=== PATIENT | male | born 1935 | race Caucasian/White ===

== ENCOUNTER → 2018-08-16 | Day surgery (SDC) | payer MEDICARE ==
[2018-08-13 13:55] LABS: BASOPHILS # (AUTO) 0.1 (0.0-0.1); EOSINOPHILS # (AUTO) 0.1 (0.0-0.4); EOSINOPHILS % 1.9 % (0.0-6.0); HEMATOCRIT 42.3 % (38.2-49.6); HEMOGLOBIN 13.8 g/dL (14.0-18.0); LYMPHOCYTES # (AUTO) 1.5 (1.0-3.2); LYMPHOCYTES % 21.9 % (18.0-39.1); MEAN CORPUSCULAR HGB CONC 32.6 g/dL (31-35); MONOCYTES # (AUTO) 0.6 (0.2-0.8); MONOCYTES % 8.4 % (4.4-11.3); NEUTROPHILS # (AUTO) 4.6 (2.1-6.9); NEUTROPHILS % 66.5 % (38.7-80.0); PLATELET COUNT 179 x10e3/uL (140-360); RED BLOOD COUNT 4.92 x10e6/uL (4.3-5.7); RED CELL DISTRIBUTION WIDTH 14.6 % (11.7-14.4)
[2018-08-13 14:15] LABS: ANION GAP 10.5 mmol/L (8-16); CALCIUM 8.8 mg/dL (8.4-10.2); CREATININE, SERUM 1.18 mg/dL (0.72-1.25); POTASSIUM 3.5 mmol/L (3.5-5.1)
--- NOTE | 2018-08-13 14:25 | Diagnostic Imaging Report ---
EXAMINATION: PA and lateral views of the chest. COMPARISON: None CLINICAL HISTORY: Preadmission, surgery for bladder calculus DISCUSSION: Lines/tubes: Dual-lead pacemaker. Lungs: The lungs are well inflated and clear. No pneumonia or pulmonary edema. Pleura: No pleural effusion or pneumothorax. Heart and mediastinum: The cardiomediastinal silhouette is normal. Bones and soft tissues: No acute bony abnormalities. IMPRESSION: No acute cardiopulmonary abnormalities. Signed by: Dr. Nacho Rojo M.D. on 08/13/2018 2:21 PM
[~2018-08-16] MED LIST: AMLODIPINE BESYL5 MG PO; ANTIBIOTIC28.4 GM PO; ASPIR 8181 MG PEG; ELIQUIS PO; FENTANYL CITRATE/PF 100MCG/2 ML INJ ONE; FLOMAX0.4 MG PO; FLUTICASONE; IBUPROFEN400 MG PO; IOPAMIDOL 610MG/1ML 300 MG/ML VIAL IV ONE; LEVOFLOXACIN 500MG/D5W 100ML 100 ML IV ONE; LIDOCAINE HCL 2% LOCAL INJ 5 ML SDV VIAL INJ ONE; MELOXICAM7.5 MG PO; MIDAZOLAM HCL 2 MG/2 ML VIAL ONE; OMEPRAZOLE40 MG PO; ONDANSETRON HCL INJ 2MG/ML 2ML 2 MG/ML VIAL ONE; PROPOFOL IV EMULSION 10 MG/ML 20 ML VIAL ONE; SIMVASTATIN20 MG PO; ULTRAM 50MG50 MG PO; antibiotic PO
--- OUTSIDE RECORDS SUMMARY | 2018-08-16 09:15 | XMS REPORT ---
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 Allergies, Adverse Reactions, Alerts Allergy Name Allergy Type Status Severity Reaction(s) Onset Date Inactive Date Treating Clinician Comments Penicillins DA Active SV 2018-08-11 00:00:00 Medications This patient has no known medications. Results Test Description Test Time Test Comments Text Results Atomic Results Result Comments CHEST 2 VIEWS 2018-08-13 14:19:00 [place] [address] Patient Name: CLARISSE LEE MR #: [id number] : 1935 Age/Sex: 83/M Req #: [id number] Adm Physician: Ordered by: PRECIOUS FONTENOT MD Report #: [id number] Location: OR Room/Bed: Procedure: [id number] DX/CHEST 2 VIEWS Exam Date: Exam Time: REPORT STATUS: Signed EXAMINATION: PA and lateral views of the chest. COMPARISON: None CLINICAL HISTORY: Preadmission, surgery for bladder calculus DISCUSSION: Lines/tubes: Dual-lead pacemaker. Lungs: The lungs are well inflated and clear. No pneumonia or pulmonary edema. Pleura: No pleural effusion or pneumothorax. Heart and mediastinum: The cardiomediastinal silhouette is normal. Bones and soft tissues: No acute bony abnormalities. IMPRESSION: No acute cardiopulmonary abnormalities. Signed by: Dr. Jesus Gill M.D. on 08/13/2018 2:21 PM Dictated By: JESUS GILL MD 1421 Transcribed By: DELMI on 08/13/18 1421 COPY TO: PRECIOUS FONTENOT MD URINALYSIS COMPLETE 2018-08-11 21:09:00 UA COLOR (test code=COLU) YELLOW YELLOW UA APPEARANCE (test code=APPU) SLIGHT HAZY CLEAR UA GLUCOSE DIPSTICK (test code=DGLUU) TRACE mg/dL NEGATIVE UA BILIRUBIN DIPSTICK (test code=BILU) NEGATIVE NEGATIVE UA KETONE DIPSTICK (test code=KETU) NEGATIVE mg/dL NEGATIVE UA SPECIFIC GRAVITY (test code=SGU) 1.010 1.001-1.035 UA BLOOD DIPSTICK (test code=ANDREW) NEGATIVE NEGATIVE UA PH DIPSTICK (test code=JOESPH) 7.0 5.0-8.0 UA PROTEIN DIPSTICK (test code=PROU) TRACE (15) mg/dL Neg-15 UA UROBILINIOGEN DIPSTICK (test code=URO) 0.2 mg/dL 0.0-0.2 UA NITRITE DIPSTICK (test code=CARLOS) NEGATIVE NEGATIVE UA LEUKOCYTE ESTERASE DIPSTICK (test code=LEUU) TRACE uL NEGATIVE UA MICROSCOPIC NEEDED? (test code=UAMICRO) YES UA WBC (test code=WBCU) 21-50 per HPF 0-5 UA RBC (test code=RBCU) 5-10 per HPF 0-5 UA EPITHELIAL CELLS (test code=EPIU) Few (2-5/hpf) per HPF Few UA BACTERIA (test code=BACU) FEW per HPF NONE Urine Source? Clean CatchURINALYSIS [id number] 21:04:00* Test Item Value Reference Range Comments UA COLOR (test code=COLU) YELLOW UA APPEARANCE (test code=APPU) CLEAR UA GLUCOSE DIPSTICK (test code=DGLUU) TRACE mg/dL NEGATIVE UA BILIRUBIN DIPSTICK (test code=BILU) NEGATIVE NEGATIVE UA KETONE DIPSTICK (test code=KETU) NEGATIVE mg/dL NEGATIVE UA SPECIFIC GRAVITY (test code=SGU) 1.010 1.001-1.035 UA BLOOD DIPSTICK (test code=ANDREW) NEGATIVE NEGATIVE UA PH DIPSTICK (test code=JOESPH) 7.0 5.0-8.0 UA PROTEIN DIPSTICK (test code=PROU) TRACE (15) mg/dL Neg-15 UA UROBILINIOGEN DIPSTICK (test code=URO) 0.2 mg/dL 0.0-0.2 UA NITRITE DIPSTICK (test code=CARLOS) NEGATIVE NEGATIVE UA LEUKOCYTE ESTERASE DIPSTICK (test code=LEUU) TRACE uL NEGATIVE UA MICROSCOPIC NEEDED? (test code=UAMICRO) UA WBC (test code=WBCU) per HPF 0-5 UA RBC (test code=RBCU) per HPF 0-5 UA EPITHELIAL CELLS (test code=EPIU) per HPF Few UA BACTERIA (test code=BACU) per HPF NONE Urine Source? Clean Catch- CT ABD PELVIS W/O [id number] 20:47:00 Name: PAZ LEE [facility] FSED : 1935 Age/S: 83 / M [address] Unit #: [id number] Loc: [address] Phys: Kit Jc MD [place], [place] [address] Acct: [id number] Di s Date: Status: REG ER PHONE #: Exam Date: 08/11/20182026 FAX #: Reason: AAA??? vs kidney stones. h/o r and l side stone EXAMS: CPT CODE: [id number] CT ABD PELVIS W/O CONT [id number] REASON FOR EXAM: AAA??? Vs kidney stones. H/o r and l side stones EXAM ORDER DATE: 08/11/2018 7:43 PM Ordering M.D.: Stas Jc MD SC OCEDURE: - CT ABD PELVIS W/O CONT noncontrast axial CT images were acqui red through the abdomen/pelvis at 5 mm intervals. Sagittal and coronal re formatted images were generated. Automated exposure control was utilized for this reduction. Phases: None COMPARISON: None FINDINGS: The absence of IV contrast limits sensitivi ty of this exam for the detection of soft tissue pathology V isualized thorax: There is subsegmental atelectasis in the bilateral lower lobes and in the lingula of the left lung. Leads from a pacemaker termina te in the right atrium and right ventricle. Hepatobiliary system: There is a 1.4 cm cyst in hepatic segment 2. Pancreas: Normal Spleen: Calcified granulomas are seen. Adrenal glands: N ormal Genitourinary system: There are multiple stones in both kidn eys. The largest stone is located in the inferior pole of the left kidney and measures 6 mm in size (401/91). No hydronephrosis or hydroureter. No ureterolithiasis. There is a diverticulum arising from the left ante rosuperior lateral wall of the bladder. This diverticulum measures up to 5 .8 x 7.9 x 7.5 cm in size. Calcification within this diverticulum may repr esent a stone. There are additional calcifications within the urinary blad aldo lumen that likely represent additional stones. The prostate glan d is markedly enlarged with an estimated volume of 152 mL. PAG E 1 Signed Report (CONTINUED) Name: PAZ LEE [facility] FSED : 1935 Age/S: 83 / M [address] [facility] Unit #: [id number] Loc: [address] Phys: Stas Jc MD [place], [place] [address] Acct: [id number] Dis Date: Status: REG ER PHONE #: Exam Date: 08/11/20182026 FAX #: Reason: AAA??? vs kidney stones. h/o r and l side stone EXAMS: CPT CODE: [id number] CT ABD PELVIS W/O CONT 03067 <Continued> Gastrointestinal tract and appendix: There is extensive diverticular disease involving the descending and sigmoid colon but no evidence of diverticulitis. Additional diverticuli are present in the transverse colon. The appendix is not clearly visualized. Stomach and small bowel are within normal limits. Abdominal vascular structures: Scattered calcified atherosclerosis in the aorta. Aorta and IVC are normal in caliber. Peritoneum and retroperitoneum: No free fluid or free air or adenopathy is appreciated. Musculoskeletal structures and abdominal wall: There are degenerative changes seen throughout the visualized spine and in the bilateral hips. There is a fat-containing umbilical hernia with a neck that measures 2.0 cm in size. There is mild stranding of fat within this hernia sac. There is also fat-containing inguinal hernia on the left side. Patient is noted to have diastases recti. IMPRESSION: Bilateral nephrolithiasis with the largest stone measuring 6 mm. No evidence of hydronephrosis or perinephric inflammatory changes. Pr ostatomegaly. No obvious prostate mass or nodule is seen however this ca n be better evaluated with a prostate MRI nonemergently. Bladder diverti culum as described above with dependent stones. This diverticula may be secondary to bladder outlet obstruction caused by the enlarged prostate gland. Colonic diverticulosis without evidence of diverticulitis. Umbilical hernia containing fat. There are inflammatory changes in the fat within the hernia sac. at 2046 Reported and signed by: Cyrus cowan MD CC: Stas Jc MD [facility] gist:Jim Mcgowanese CTDI: DLP: Trnscb Date/Time: 08/11/2018 (2046) [email or web address] Orig Print D/T: S: 08/11/2018 (2049) PAGE 2 Signed Report - XR CHEST 1 [id number] 20:29:00 FAX: Stas Matute MD [phone] [place]: [place] St: REG Name: PAZ OVALLE [facility] FSED : [birth year] Age/S: 83/M [address] [facility] [address] Unit #: [id number] Loc: [address] Phys: Stas Jc MD [place], [place] [address] Acct: [id number] Dis Date: Status: REG ER PHONE #: Exam Date: 08/11/20182011 FAX #: Reason: ABDOMINAL PAIN EXAMS: CPT CODE: [id number] XR CHEST 1 V 20448 REASON FOR EXAM: ABDOMINAL PAIN Exam Order Date: 08/11/2018 7:43 PM Ordering M.D .: Stas Jc MD PROCEDURE: - XR CHEST 1 V COMP ARISON: None FINDINGS: There is a left subclavian dual-mattie d pacemaker with the leads terminating in the regions of the right atrium and right ventricle. There is subsegmental atelectasis in the bila teral lung bases. The upper lungs are clear. The cardiomedia stinal silhouette is at the upper limits of normal in size however this ma y be due to patient positioning. Calcified lymph nodes are seen in the aor topulmonary window and left hilar region. Degenerative changes are seen throughout the visualized spine. The visualized upper abdomen is wit hin normal limits. IMPRESSION: Subsegmental atelectasis in the lung bases. Otherwise the lungs are clear. Electronic ally Signed by Cyrus Arreaga MD on 08/11/2018 at 2028 Repo rted and signed by: Cyrus Arreaga MD CC: Stas Jc MD Technologist: Jim Camarillo Trnksrd Date/Time/By: 08/11/2018 (2028) : By: [email or web address] Orig Print D/T: S: 08/11/2018 (2031) PAGE 1 Signed Report PROTHROMBIN [id number] 20:03:00* Test Item Value Reference Range Comments PROTHROMBIN TIME PATIENT (test code=PTP) 9.8 seconds 9.0-13.0 INTERNATIONAL NORMAL RATIO (test code=INR) 1.0 0.8-1.2 The therapeutic range for oral anticoagulant therapy formost indications is an international normalized ratio (INR)of between 2.0 and 3.0. The recommended therapeutic INRrange for various clinical situations is listed below: Clinical Situation INR range Pulmonary e mbolism treatment (2.0-3.0)Venous thrombosis treatmentVenous thrombosis prophylaxis (high risk surgery)Prevention of systemic embolism from: Acute myocardial infarction Valvular heart disease Atrial fibrillation Mechanical prosthetic heart valves (2.5-3.5) IS PATIENT ON ANTICOAGULANTS? NTHROMBOPLASTIN TIME [id number] 20:03:00* Test Item Value Reference Range Comments THROMBOPLASTIN TIME PARTIAL (test code=PTT) 24.7 seconds 25.5-34.3 Therapeutic Range for patients on Heparin Therapy is 2 to2.5 times their baseline PTT level. IS PATIENT ON ANTICOAGULANTS? NBASIC METABOLIC [id number] 19:59:00* Test Item Value Reference Range Comments SODIUM (test code=NA) 142 mmol/L 128-145 POTASSIUM (test code=K) 3.5 mmol/L 3.5-5.1 CHLORIDE (test code=CL) 104.0 mmol/L 98-107 CARBON DIOXIDE (test code=CO2) 28.4 mmol/L 22-29 ANION GAP (test code=GAP) 13 mmol/L 10-20 GLUCOSE (test code=GLU) 135 mg/dL 70-110 BLOOD UREA NITROGEN (test code=BUN) 16 mg/dL 7-22 GLOMERULAR FILTRATION RATE (test code=GFR) 59 mL/min >=60 Estimated GFR by using Modified MDRD formula.Chronic kidney disease is defined as either kidney damageor GFR <60 mL/min/1.73 m2 for >3 months. CREATININE (test code=CREAT) 1.18 mg/dL 0.55-1.3 BUN/CREATININE RATIO (test code=BUN/CREA) 13.6 10-20 CALCIUM (test code=CA) 8.5 mg/dL 8.0-10.5 HEPATIC FUNCTION [id number] 19:59:00* Test Item Value Reference Range Comments TOTAL PROTEIN (test code=PROT) 6.5 gram/dL 6.1-7.8 ALBUMIN (test code=ALB) 3.5 g/dL 3.3-4.4 GLOBULIN (test code=GLOB) 3.0 G/DL 1-10 ALBUMIN/GLOBULIN RATIO (test code=A/G) 1.2 0.75-1.50 BILIRUBIN TOTAL (test code=BILT) 0.50 mg/dL 0.2-1.2 BILIRUBIN DIRECT (test code=BILD) 0.10 mg/dL 0.0-0.30 SGOT/AST (test code=AST) 26 U/L 10-39 SGPT/ALT (test code=ALT) 37 U/L 10-69 ALKALINE PHOSPHATASE TOTAL (test code=ALKP) 66 U/L 50-139 [id number] 19:59:00* Test Item Value Reference Range Comments LIPASE (test code=LIP) 182 Unit/L 144-286 BASIC METABOLIC [id number] 19:55:00* Test Item Value Reference Range Comments SODIUM (test code=NA) 142 mmol/L 128-145 POTASSIUM (test code=K) 3.5 mmol/L 3.5-5.1 CHLORIDE (test code=CL) 104.0 mmol/L 98-107 CARBON DIOXIDE (test code=CO2) 28.4 mmol/L 22-29 ANION GAP (test code=GAP) 13 mmol/L 10-20 GLUCOSE (test code=GLU) 135 mg/dL 70-110 BLOOD UREA NITROGEN (test code=BUN) 16 mg/dL 7-22 GLOMERULAR FILTRATION RATE (test code=GFR) 59 mL/min >=60 Estimated GFR by using Modified MDRD formula.Chronic kidney disease is defined as either kidney damageor GFR <60 mL/min/1.73 m2 for >3 months. CREATININE (test code=CREAT) 1.18 mg/dL 0.55-1.3 BUN/CREATININE RATIO (test code=BUN/CREA) 13.6 10-20 CALCIUM (test code=CA) 8.5 mg/dL 8.0-10.5 HEPATIC FUNCTION [id number] 19:55:00* Test Item Value Reference Range Comments TOTAL PROTEIN (test code=PROT) gram/dL 6.4-8.2 ALBUMIN (test code=ALB) g/dL 3.4-5.0 GLOBULIN (test code=GLOB) G/DL 1-10 ALBUMIN/GLOBULIN RATIO (test code=A/G) 0.75-1.50 BILIRUBIN TOTAL (test code=BILT) mg/dL 0.0-1.0 BILIRUBIN DIRECT (test code=BILD) mg/dL 0.0-0.20 SGOT/AST (test code=AST) IUnit/L 15-37 SGPT/ALT (test code=ALT) IUnit/L 12-78 ALKALINE PHOSPHATASE TOTAL (test code=ALKP) IUnit/L 45-117 [id number] 19:55:00* Test Item Value Reference Range Comments LIPASE (test code=LIP) U/L 73.0-393.0 CBC W/O [id number] 19:47:00* Test Item Value Reference Range Comments WHITE BLOOD CELL (test code=WBC) 6.7 K/mm3 4.5-12.5 RED BLOOD CELL (test code=RBC) 5.19 mill/mm3 4.0-5.8 HEMOGLOBIN (test code=HGB) 14.5 gram/dL 13.0-17.5 HEMATOCRIT (test code=HCT) 44.6 % 42.0-52.0 MEAN CELL VOLUME (test code=MCV) 85.9 fL 80-98 MEAN CELL HGB (test code=MCH) 27.9 picogram 27.0-33.0 MEAN CELL HGB CONCETRATION (test code=MCHC) 32.5 gram/dL 33.0-36.0 RED CELL DISTRIBUTION WIDTH (test code=RDW) 14.3 % 11.6-16.2 RED CELL DISTRIBUTION WIDTH SD (test code=RDW-SD) 45.5 fL 37.0-51.0 PLATELET COUNT (test code=PLT) 182 K/mm3 150-450 MEAN PLATELET VOLUME (test code=MPV) 10.9 fL 6.7-11.0
[2018-08-16 13:00] VITALS: BP 150/78
--- NOTE | 2018-09-08 14:49 | Operative Report ---
DATE OF PROCEDURE: 08/16/2018 SURGEON: Mike Jacobsen MD PREOPERATIVE DIAGNOSIS: Bladder stone. POSTOPERATIVE DIAGNOSIS: Bladder stone. PROCEDURE PERFORMED: Cystolitholapaxy. ANESTHESIA: General anesthesia. ESTIMATED BLOOD LOSS: Minimal. INDICATIONS: Mr. Wood Haynes is an 83-year-old man with a recent history of hematuria and was found to have a bladder stone. He now presents for definitive surgical management of this problem. PROCEDURE IN DETAIL: The patient was brought in the operating room, placed in supine position. After initiation of general anesthesia, he was placed in dorsal lithotomy position in the usual sterile fashion. Cystourethroscopy was performed using 21-Albanian cystoscope. The anterior and posterior urethra were noted to be normal. The prostate revealed trilobar hyperplasia with mild elevation in the bladder. The bladder was entered without difficulty. Upon entrance into the bladder, the ureteral orifices were in normal and anatomic position and produce clear efflux. There was moderate trabeculation noted in the bladder with cellules formation seen throughout. There were no mucosal lesions identified. There was approximately a 2 cm spiculated stone noted at the bladder base. The 1000 mm fiber of the holmium laser was used to cystoscope to break this up into a smaller pieces. These pieces were then subsequently removed and sent to pathology for microscopic analysis. There was no gross injury to the bladder mucosa as resulted with the use of laser. The bladder was then drained in its entirety. Cystoscope and sheath were removed. The patient was then placed in a supine position. Anesthesia was reversed. He was transferred to the bed and taken to the postanesthesia care unit in good condition. Of note, the needle and instrument counts were correct at the conclusion of the case. Mike Jacobsen MD HLW/MODL /[id number]
== END | disposition home or self-care (01) ==
LOC: OR 08:57
PROVIDERS: ATTEND Urology
DX: N21.0 Calculus in bladder (principal); Z01.810 Encounter for preprocedural cardiovascular examination; Z01.812 Encounter for preprocedural laboratory examination; Z01.811 Encounter for preprocedural respiratory examination; K21.9 Gastro-esophageal reflux disease without esophagitis; I10 Essential (primary) hypertension; I48.91 Unspecified atrial fibrillation; E78.5 Hyperlipidemia, unspecified; Z95.0 Presence of cardiac pacemaker; Z88.5 Allergy status to narcotic agent; Z88.0 Allergy status to penicillin; N20.0 Calculus of kidney
CPT/HCPCS: 36415; 52317; 71046; 76000; 80048; 85025; 88300; 93005; J1956; J2001; J2250; J2405; J2704; J3010